=== PATIENT | female | born 1945 | race Caucasian/White ===

== ENCOUNTER → 2019-01-20 14:20 | Outpatient (CLI) | payer MEDICARE, BC | END | disposition home or self-care (01) | LOC: D.HCCARDIO 14:20 | PROVIDERS: ATTEND Internal Medicine Cardiovascular Disease | DX: R07.2 Precordial pain (principal); R06.02 Shortness of breath ==

== ENCOUNTER → 2019-02-17 06:53 | Outpatient (CLI) | payer MEDICARE, BC ==
[~2019-02-17] VITALS: Ht 162.6 cm; Wt 88.6 kg
--- NOTE | ~2019-02-17 | HEMODYNAMI ---
PATIENT:JOSELYN TORRES MEDICAL RECORD: [id number] : 47 LOCATION:[facility] ADMISSION DATE: 02/17/19 Generatedon:02/17/201910:25 Patient name: JOSELYN TORRES Patient #: [id number] SSN: : 1945 Date of study: 02/17/2019 Page: Of Hemodynamic Procedure Report Patient Data Patient Demographics Procedure consent was obtained First Name: JOSELYN Gender: Female Last Name: BRIAN : 1945 Middle Initial: A Age: 73 year(s) Patient #: [id number] Race: Unknown Additional ID: [id number] Contact details [address]: [address] [place] [address] State: [place] City: [facility] Zip code: [address] Past Medical History Allergies: No known allergies Admission Admission Data Admission Date: 02/17/2019 Admission Time: 6:53 Admit Source: Other Lab Results Lab Result Date: 02/17/2019 Lab Result Time: 7:20 Biochemistry Name Units Result Min Max BUN mg/dl 14 --(--*-)-- 7 18 Creatinine mg/dl 0.9 --(-*--)-- 0.6 1.3 CBC Name Units Result Min Max Hematocrit % 40.8 -*(----)-- 42 54 Hemoglobin g/dl 13.7 --(*---)-- 13.5 17.5 Procedure Procedure Types Cath Procedure Diagnostic Procedure LHC LHC w/Coronaries Sedation Charges Moderate Sedation up to 15 minutes Procedure Description Procedure Date Procedure Date: 02/17/2019 Procedure Start Time: 10:03 Procedure End Time: 10:24 Procedure Staff Name Function Silver Chapa MD Performing Physician Manan Recinos RT Monitor Colin Jansen RT Scrub Jennifer Weeks RN Nurse Procedure Data Cath Procedure Fluoroscopy Diagnostic fluoroscopy Total fluoroscopy Time: 5.5 time: 5.5 min min Diagnostic fluoroscopy Total fluoroscopy dose: 823 dose: 823 mGy mGy Contrast Material Contrast Material Type Amount (ml) Isovue 370 46 Entry Location Entry Primary Successful Side Size Upsize Upsize Entry Closure [place] ccessful Closure Location (Fr) 1 (Fr) 2 (Fr) Remarks Device Remarks Radial Right 6 Fr Mechanical artery Short Compression Estimated blood loss: 10 ml Diagnostic catheters Device Type Used For End Catheter Placement DIAGNOSTIC Elroy 110cm 5 Procedure Fr catheter ([id number]) DIAGNOSTIC Sarabjit 110cm Procedure 5Fr catheter ([id number]) DIAGNOSTIC LCB 5Fr Procedure catheter ([id number]) Procedure Complications No complications Procedure Medications Medication Administration Route Dosage Oxygen etCO2 Nasal cannula 2 l/min Lidocaine 2% added to field 20 Heparin Flush Bag added to field 2 bags (1000units/500ml NS) 0.9% NaCl I.V. 100 ml/hr Radial Cocktail I.A. 1 syringe (Verapamil 2mg/Nitro 400mcg/Heparin 1500units) Versed I.V. 1 mg Fentanyl I.V. 50 mcg Versed I.V. 1 mg Fentanyl I.V. 50 mcg Versed I.V. 1 mg Versed I.V. 1 mg Hemodynamics Rest HGB: 13.7 (g/dl) Heart Rate: 64 (bpm) Pressure Samples Time Site Value (mmHg) Purpose Heart Use Rate(bpm) 10:06 LV 101/6,13 Snapshot 77 10:06 LV 76/17,43 Snapshot 72 10:06 LV 118/6,13 Snapshot 68 Gradients Valve Time Site Site Mean SEP/DFP Peak To Heart Use 1 2 (mmHg) (sec/min) Peak Rate (mmHg) (bpm) Aortic 10:07 LV AO 93 Snapshots Pre Cath Intra NCS Post Cath Vital Signs Time Heart Resp SPO2 etCO2 NIBP (mmHg) Rhythm Pain Sedation Rate (ipm) (%) (mmHg) Status Level (bpm) 9:52:08 62 10 99 35.6 157/65(123) NSR 0 (11) 10(A) , No pain 9:56:37 66 13 96 26 137/54(100) NSR 0 (11) 10(A) , No pain 10:00:57 62 39 95 37.9 125/51(105) NSR 0 (11) 10(A) , No pain 10:05:19 67 35 95 40.9 132/55(109) NSR 0 (11) 9(A) , No pain 10:10:37 74 21 97 25.2 113/53(78) NSR 0 (11) 9(A) , No pain 10:14:55 71 36 96 31.2 131/55(82) NSR 0 (11) 9(A) , No pain 10:19:21 78 44 97 31.9 134/56(96) NSR 0 (11) 10(A) , No pain 10:23:49 69 36 98 29 123/55(85) NSR 0 (11) 10(A) , No pain Medications Time Medication Route Dose Verified Delivered Reason Notes Effectiveness by by 9:54:25 Oxygen etCO2 2 l/min Silver Buffie used for Nasal Eduard Weeks RN procedure cannula 9:54:33 Lidocaine 2% added 20ml Silver Silver for local to vial Eduard Chapa MD anesthetic field 9:54:40 Heparin Flush added 2 bags Silver Silver used for Bag to Eduard Chapa MD procedure (1000units/500ml field NS) 9:54:49 0.9% NaCl I.V. 100 Silver Buffie Per ml/hr Eduard Weeks RN physician 10:01:05 Versed I.V. 1 mg Silver Buffie for sedation Eduard Weeks RN 10:01:11 Fentanyl I.V. 50 mcg Silver Buffie for sedation Eduard Weeks RN 10:05:57 Radial Cocktail I.A. 1 Silver Silver for (Verapamil syringe Eduard Chapa MD vasodilation 2mg/Nitro 400mcg/Heparin 1500units) 10:06:34 Versed I.V. 1 mg Silver Buffie for sedation Eduard Weeks RN 10:06:38 Fentanyl I.V. 50 mcg Silver Buffie for sedation dEuard Weeks RN 10:11:00 Versed I.V. 1 mg Silver Buffie for sedation Eduard Weeks RN 10:18:24 Versed I.V. 1 mg Silver Buffie for sedation Eduard Weeks RN Procedure Log Time Note 9:33:52 Informed consent obtained and on chart 9:33:55 Admit Source: Other 9:34:10 Diagnostic Cath status Elective 9:34:12 Jennifer Weeks RN sent for patient. Start room use. 9:34:12 Time tracking: Regular hours (M-F 7:00 - 5:00) 9:34:16 Plan of Care:Hemodynamics will remain stable., Cardiac rhythm will remain stable., Comfort level will be maintained., Respiratory function will remain adequate., Patient/ family verbilizes understanding of procedure., Procedure tolerated without complication., Recovers from procedure without complications.. 9:37:45 H&P Date Dictated: 02/02/2019 Within 30 days and on chart., H&P Addendum completed by physician on day of procedure. (MUST COMPLETE FOR ALL OUTPATIENTS). 9:37:54 Patient allergic to No known allergies 9:38:32 Lab Result : BUN 14 mg/dl 9:38:32 Lab Result : Hemoglobin 13.7 g/dl 9:38:32 Lab Result : Creatinine 0.9 mg/dl 9:38:32 Lab Result : Hematocrit 40.8 % 9:38:34 Lab results completed and on chart. 9:38:39 Patient received from Pre/Post Procedure Room to CCL 1 Alert and oriented. Tansferred to table in Supine position. 9:38:40 Warm blankets applied, and rashard hugger turned on for patient comfort. 9:38:40 Correct patient and procedure confirmed by team. 9:38:41 ECG and BP/O2 sat monitors applied to patient. 9:38:42 Pre-procedure instructions explained to patient. 9:38:43 Pre-op teaching completed and patient verbalized understanding. 9:38:44 Family in waiting room. 9:38:45 Patient NPO since Midnight. 9:38:47 Is the patient allergic to Iodine/contrast media? No. 9:38:53 Is patient on blood thinner?No 9:39:12 Patient diabetic? No. 9:39:15 Previous problem with sedation/anesthesia? No ? 9:39:16 Snore? Yes 9:39:18 Sleep apnea? Yes 9:39:19 Deviated septum? No 9:39:20 Opens mouth fully? Yes 9:39:21 Sticks out tongue? Yes 9:39:23 Airway obstruction? No ? 9:39:26 Dentures? No ? 9:48:06 Pre procedure: right dorsailis pedis pulse 2+ Normal; easily identifiable; not easily obliterated 9:48:08 Modified Erich's test Ulnar < 7 seconds 9:48:09 Patient pain scale 0/10 ?. 9:48:15 IV patent on arrival in left wrist with 0.9% NaCl at KVO. 9:48:18 Right Radial & Right Groin area was prepped with chlora-prep and draped in sterile fashion 9:49:02 Alarms reviewed by R. N. 9:49:02 Sharps counted by scrub and verified by R.N. 9:49:04 Use device set Radial Dx or PCI 9:49:09 ACIST Syringe (56016) opened to sterile field. 9:49:09 Medline Cath Pack ([id number]) opened to sterile field. 9:49:09 Bag Decanter (2002S) opened to sterile field. 9:49:10 ACIST Hand Control (03349) opened to sterile field. 9:49:10 ACIST Manifold (18195) opened to sterile field. 9:49:11 Tegaderm 4 x 4 (1626W) opened to sterile field. 9:49:11 MBrace Wrist Support ([id number]) opened to sterile field. 9:50:42 Vital chart was started 9:50:43 Baseline sample Acquired. 9:51:04 Rhythm: sinus rhythm 9:51:05 Full Disclosure recording started 9:54:25 Oxygen 2 l/min etCO2 Nasal cannula was administered by Jennifer Weeks RN; used for procedure; 9:54:33 Lidocaine 2% 20ml vial added to field was administered by Silver Chapa MD; for local anesthetic; 9:54:40 Heparin Flush Bag (1000units/500ml NS) 2 bags added to field was administered by Silver Chapa MD; used for procedure; 9:54:49 0.9% NaCl 100 ml/hr I.V. was administered by Jennifer Weeks RN; Per physician; 10:00:42 Physician arrived 10:00:43 --------ALL STOP TIME OUT------ 10:00:43 Final Timeout: patient, procedure, and site verified with staff and physician. All members of the team are in agreement. 10:00:46 Right Radial & Right Groin site verified by team. 10:00:49 Maximum allowable Isovue 300 dose 300ml. Physician notified. (300ml for normal creatinines. For patients with creatinine of 1.7 or higher multiply weight(kg) x 5 divided by creatinine.) 10:00:53 Fire Safety Assessment: A--An alcohol-based skin anteseptic being used preoperatively., C--Open oxygen or nitrous oxide is being used., D--An ESU, laser, or fiber-optic light is being used. 10:00:55 Physical assessment completed. ASA score P 2 - A patient with mild systemic disease as per Silver Chapa MD. 10:01:04 Sedation plan: IV Moderate Sedation Medication:Versed, Fentanyl 10:01:05 Versed 1 mg I.V. was administered by Jennifer Weeks RN; for sedation; 10:01:11 Fentanyl 50 mcg I.V. was administered by Jennifer Weeks RN; for sedation; 10:03:55 Procedure started. 10:03:59 Local anesthetic to right radial artery with Lidocaine 2% by Silver Chapa MD.INITIAL ACCESS ONLY 10:04:07 A 6 Fr Short sheath was inserted into the Right Radial artery 10:05:18 A DIAGNOSTIC Elroy 110cm 5 Fr catheter ([id number]) was advanced over the wire and used for Procedure. 10:05:19 DIAGNOSTIC WIRE .035 260cm J wire (099313) opened to sterile field. 10:05:20 NEEDLE Cook 21G 4cm Radial (L59981) opened to sterile field. 10:05:57 Radial Cocktail (Verapamil 2mg/Nitro 400mcg/Heparin 1500units) 1 syringe I.A. was administered by Silver Chapa MD; for vasodilation; 10:06:34 Versed 1 mg I.V. was administered by Jennifer Weeks RN; for sedation; 10:06:38 Fentanyl 50 mcg I.V. was administered by Jennifer Weeks RN; for sedation; 10:06:43 LV gram done using CYR 10:06:45 Injector settings: Ml/sec: 5, Volume: 15, 10:06:49 LV hemodynamics recorded. 10:06:53 EF : 60 % 10:08:32 RCA angiography performed. 10:09:48 Catheter exchanged over wire. 10:09:52 A DIAGNOSTIC Sarabjit 110cm 5Fr catheter (204310) was advanced over the wire and used for Procedure. 10:11:00 Versed 1 mg I.V. was administered by Jennifer Weeks RN; for sedation; 10:12:56 Catheter removed. 10:13:01 GUIDE 5FR EBU 3.0 catheter ([id number]) opened to sterile field. 10:13:09 5 Fr EBU 3.0 guide catheter was inserted over the wire 10:13:56 LCA angiography performed. 10:14:08 TR BAND Standard ([id number]) opened to sterile field. 10:15:50 Catheter exchanged over wire. 10:16:01 A DIAGNOSTIC LCB 5Fr catheter ([id number]) was advanced over the wire and used for Procedure. 10:18:24 Versed 1 mg I.V. was administered by Jennifer Weeks RN; for sedation; 10:18:43 Catheter removed. 10:18:51 Sheath removed intact; hemostasis achieved with Mechanical Compression to the Right Radial artery. 10:18:52 Procedure ended.(Physican Out) 10:21:00 Fluoroscopy time 05.50 minutes. 10:21:05 Fluoroscopy dose: 823 mGy 10:21:05 Flurop Dose total: 823 10:21:10 Contrast amount:Isovue 370 46ml. 10:21:11 Sharps counted by scrub and verified by R.N. 10:21:55 TR band inflated with 12cc of air. 10:21:56 Insertion/operative site no bleeding no hematoma. 10:23:05 Post right radial artery:stable, soft, clean and dry 10:23:06 Post Procedure Pulses reassessed and unchanged 10:23:09 Post-procedure physical assessment completed. ASA score P 2 - A patient with mild systemic disease as per Silver Chapa MD. 10:23:11 Post procedure rhythm: unchanged. 10:23:36 Estimated blood loss: 10 ml 10:23:38 Post procedure instruction explained to patient.Patient verbalizes understanding. 10:23:39 Patient needs reinforcement of post procedure teaching. 10:24:09 Procedure type changed to Cath procedure, Diagnostic procedure, LHC, LHC w/Coronaries, Sedation Charges, Moderate Sedation up to 15 minutes 10:24:32 Procedure and supply charges have been captured, reviewed, submitted and are correct. 10:24:34 Procedure Complication : No complications 10:24:36 Vital chart was stopped 10:24:37 See physician's report for complete and final results. 10:24:38 Report given to Pre/Post Procedure Room. 10:24:40 Patient transfered to Pre/Post Procedure Room with Stretcher. 10:24:42 Procedure ended. 10:24:42 Full Disclosure recording stopped 10:24:46 End room use (Document Last) Device Usage Item Name Manufacture Quantity Catalog Hospital Part Current Minimal Lot# / Number Charge Number Stock Stock Serial# Code ACIST Acist 1 44583 163112 996307 108934 20 Syringe Medical (45700) Systems Inc Medline Medline 1 [id number] 022293 15546 835303 5 Cath Pack ([id number]) Bag Microtek 1 2001S 281514 11532 816654 5 Decanter Medical Inc. () ACIST Hand Acist 1 73559 322691 727476 839957 5 Control Medical (08885) Systems Inc ACIST Acist 1 47826 965987 601722 954909 5 Manifold Medical (11663) Systems Inc Tegaderm 4 3M 1 1626W 378969 577957 882601 5 x 4 (1626W) MBrace Advanced 1 140-0250-00 297990 25626 311129 5 Wrist Vascular Support Dynamics ([id number]) DIAGNOSTIC Terumo 1 40-5013 384134 322076 441012 5 Elroy 110cm 5 Fr catheter (904828) DIAGNOSTIC St Abel 1 154322 643838 224042 716777 30 WIRE .035 260cm J wire (199209) NEEDLE Cook Cook Medical 1 [id number] 672276 285344 601506 5 21G 4cm Radial (N60276) DIAGNOSTIC Terumo 1 40-5023 591351 728980 611703 5 Sarabjit 110cm 5Fr catheter (904116) GUIDE 5FR Medtronic 1 [id number] 309782 383837 942782 1 EBU 3.0 catheter ([id number]) TR BAND Terumo 1 [id number] 261451 796219 007614 40 Standard ([id number]) DIAGNOSTIC Cardinal 1 [id number] 987022 608394 396103 5 LCB 5Fr Health catheter (697204B) Signature Audit Forrest Stage Time Signature Unsigned Intra-Procedure 02/17/2019 Manan Recinos 10:25:33 AM RT(R) Signatures Monitor : Manan Recinos RT Signature : Date : Time : [id number] [place] [address]
[~2019-02-17 06:53] MED LIST: LEVOTHYROXINE125 MCG PO; PEPCID AC20 MG PO
[2019-02-17 07:27] VITALS: BP 141/57; Ht 162.6 cm; Wt 88.6 kg
[2019-02-17 07:35] LABS: BASOPHILS 0.5 % (0-2); EOSINOPHILS 2.1 % (0-7); HEMATOCRIT 40.8 % (36.0-48.0); HEMOGLOBIN 13.7 g/dL (12-16); IMMATURE GRANULOCYTES 0.2 % (0-5); LYMPHOCYTES 37.8 % (15-50); MCH 28.1 pg (26.0-34.0); MCHC 33.6 g/dL (31.0-37.0); MCV 83.6 fL (80.0-100.0); MONOCYTES 9.8 % (2-11); NEUTROPHILS 49.6 % (40-80); PLATELET COUNT 290 10x3/uL (130-400); RBC 4.88 10x6/uL (4.00-5.40); RDW 14.3 % (11.5-14.5); WBC 8.8 10x3/uL (4.8-10.8)
[2019-02-17 07:42] LABS: ANION GAP 13.9 mmol/L (8-16); CALCIUM 9.2 mg/dL (8.5-10.1); CARBON DIOXIDE 23.3 mmol/L (21.0-32.0); CREATININE - SERUM 0.9 mg/dL (0.6-1.3); POTASSIUM - SERUM 4.2 mmol/L (3.5-5.1)
--- NOTE | 2019-02-17 10:38 | NUR ---
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 PATIENT CONNECTED TO MONITOR FOR OBSERVATION HR 65 BP 113/45
--- NOTE | 2019-02-17 10:48 | NUR ---
TR BAND REMAINS CDI WITH NO BLEEDING OR HEMATOMA. FAMILY IS AT BEDSIDE WITH PATIENT.
--- NOTE | 2019-02-17 11:15 | NUR ---
REPOSITIONED TO HOB UP 30 FOR COMFORT. TR BAND TO R/WRIST IS CDI NO BLEEDING NOTED. SANDWICH AND SODA TO BEDSIDE WITH FAMILY TO ASSIST
--- NOTE | 2019-02-17 11:30 | NUR ---
TR BAND REMAINS CDI WITH CHEST PAIN DENIED.
--- NOTE | 2019-02-17 11:45 | NUR ---
3 CC AIR REMOVED FROM TR BAND WITH NO BLEEDING NOTED
--- NOTE | 2019-02-17 12:08 | NUR ---
3 CC AIR REMOVED FROM TR BAND NO BLEEDING OR HEMATOMA
--- NOTE | 2019-02-17 12:15 | NUR ---
PIV REMOVED WITH DRESSING APPLIED. 3 CC AIR REMOVED FROM TR BAND NO BLEEDING
--- NOTE | 2019-02-17 12:38 | NUR ---
VERBAL AND WRITTEN DISCHARGE GONE OVER WITH PATIENT AND FAMILY. TR BAND REMOVED WITH DRESSING APPLIED. PATIENT LEFT VIA WC TO PARKING FOR TRANSPORT HOME CHEST PAIN DENIED
== END | disposition home or self-care (01) ==
LOC: D.CATH 06:53
PROVIDERS: ATTEND Internal Medicine Cardiovascular Disease
DX: I20.9 Angina pectoris, unspecified (principal); R94.30 Abnormal result of cardiovascular function study, unspecified; Z01.812 Encounter for preprocedural laboratory examination